=== PATIENT | male | born 1965 | race Caucasian/White ===

== ENCOUNTER 2017-02-12 19:41 | Emergency (ER) | payer OTHER, SELFPAY ==
[2017-02-12 20:14] VITALS: TEMP 99.1; O2SAT 98
--- NOTE | 2017-02-12 20:29 | C.PDOC ---
History Of Present Illness Patient, with a past medical history of hypertension, presents to the ED complaining of a nose bleed that began prior to arrival. He notes it stopped bleeding. Patient denies any discomfort, trauma, fever, chills, cough, nausea or vomiting. Time Seen by Provider: 02/12/17 20:28 Chief Complaint (Nursing): ENT Problem History Per: Patient History/Exam Limitations: None Onset/Duration Of Symptoms: Mins (prior to arrival) Current Symptoms Are (Timing): Gone Severity: None Pain Scale Rating Of: 0 Past Medical History Reviewed: Historical Data, Nursing Documentation, Vital Signs Vital Signs: Last Vital Signs Temp 99.1 F 02/12/17 20:08 Pulse 80 02/12/17 21:04 Resp 14 02/12/17 21:04 BP 168/82 H 02/12/17 21:04 Pulse Ox 98 02/12/17 21:04 - Medical History PMH: HTN Family History: States: Unknown Family Hx - Social History Hx Alcohol Use: Yes Hx Substance Use: No - Immunization History Hx Tetanus Toxoid Vaccination: No Hx Influenza Vaccination: No Hx Pneumococcal Vaccination: No Review Of Systems Constitutional: Negative for: Fever, Chills ENT: Positive for: Other (nose bleed) Respiratory: Negative for: Cough Gastrointestinal: Negative for: Nausea, Vomiting Physical Exam - Physical Exam Appears: Non-toxic, No Acute Distress Skin: Warm, Dry Head: Atraumatic, Normacephalic Ear(s): Bilateral: Normal Nose: Other (dry blood in left nare; no active bleeding) Oral Mucosa: Moist Throat: Normal Neck: Supple Chest: Symmetrical Cardiovascular: Rhythm Regular Respiratory: No Rales, No Rhonchi, No Wheezing Gastrointestinal/Abdominal: Soft, No Tenderness Back: No CVA Tenderness Extremity: Bilateral: Atraumatic Neurological/Psych: Oriented x3 ED Course And Treatment O2 Sat by Pulse Oximetry: 98 (room air) Pulse Ox Interpretation: Normal Disposition Counseled Patient/Family Regarding: Studies Performed, Diagnosis, Need For Followup - Disposition Referrals: [facility] [Outside] Danilo Cade MD [Staff Provider] - Disposition: HOME/ ROUTINE Disposition Time: 20:29 Condition: FAIR Additional Instructions: Please return if symptoms recur Instructions: Nosebleed (ED) Print Language: QATARI - Clinical Impression Clinical Impression: Anterior epistaxis - Scribe Statement The provider has reviewed the documentation as recorded by the Scribe Nuris Kapoor Provider Attestation: All medical record entries made by the Scribe were at my direction and personally dictated by me. I have reviewed the chart and agree that the record accurately reflects my personal performance of the history, physical exam, medical decision making, and the department course for this patient. I have also personally directed, reviewed, and agree with the discharge instructions and disposition.
[2017-02-12 21:05] VITALS: BP 168/82; PULSE 80; RESP 14
== END 2017-02-12 21:05 | disposition home or self-care (01) ==
LOC: C.ER 19:41
DX: R04.0 Epistaxis (principal)

== ENCOUNTER 2017-02-12 23:26 | Emergency (ER) | payer SELFPAY ==
--- NOTE | 2017-02-13 00:03 | C.PDOC ---
History Of Present Illness Patient, with a past medical history of hypertension, presents to the ED complaining of a nose bleed from his left nare. Patient was seen in the ED a few hours ago for a nose bleed that stopped bleeding when he arrived in the ED. He went home and he had an anterior bleed with clots from his left nare. Patient reports he has been coughing up clots and the bleeding has been continuous. Patient denies fever, chills, nausea, or vomiting. Time Seen by Provider: 02/12/17 23:37 Chief Complaint (Nursing): ENT Problem History Per: Patient History/Exam Limitations: None Onset/Duration Of Symptoms: Worse Since (prior to arrival) Current Symptoms Are (Timing): Still Present Symptoms Have Been: Continuous Severity: Mild Pain Scale Rating Of: 3 Past Medical History Reviewed: Historical Data, Nursing Documentation, Vital Signs Vital Signs: Last Vital Signs Temp 98.0 F 02/13/17 03:31 Pulse 92 H 02/13/17 03:31 Resp 20 02/13/17 03:31 BP 190/95 H 02/13/17 03:31 Pulse Ox 97 02/13/17 03:31 - Medical History PMH: HTN Family History: States: Unknown Family Hx - Social History Hx Alcohol Use: Yes Hx Substance Use: No - Immunization History Hx Tetanus Toxoid Vaccination: No Hx Influenza Vaccination: No Hx Pneumococcal Vaccination: No Review Of Systems Constitutional: Negative for: Fever, Chills ENT: Positive for: Other (nose bleed from left nare) Gastrointestinal: Negative for: Nausea, Vomiting Physical Exam - Physical Exam Appears: Non-toxic, No Acute Distress Skin: Warm, Dry Head: Atraumatic, Normacephalic Nose: Epistaxis (from left nare) Oral Mucosa: Moist Throat: Normal Neck: Supple Chest: Symmetrical Cardiovascular: Rhythm Regular Respiratory: No Rales, No Rhonchi, No Wheezing Back: No CVA Tenderness Extremity: Bilateral: Atraumatic Neurological/Psych: Oriented x3, Normal Speech, Normal Cognition Gait: Steady ED Course And Treatment O2 Sat by Pulse Oximetry: 96 (room air) Pulse Ox Interpretation: Normal Progress Note: Plan: Ativan. Packed left nare with 5.5 cm rapid rhino. Disposition Counseled Patient/Family Regarding: Studies Performed, Diagnosis, Need For Followup - Disposition Referrals: Danilo Cade MD [Staff Provider] - Disposition: HOME/ ROUTINE Disposition Time: 00:03 Condition: FAIR Additional Instructions: please follow up with ENT doctor., so you can have the packing removed in the next 24 hours. Instructions: Nosebleed (ED) Print Language: MALDIVIAN - Clinical Impression Clinical Impression: Anterior epistaxis - Scribe Statement The provider has reviewed the documentation as recorded by the Scribe Nuris Kapoor Provider Attestation: All medical record entries made by the Scribe were at my direction and personally dictated by me. I have reviewed the chart and agree that the record accurately reflects my personal performance of the history, physical exam, medical decision making, and the department course for this patient. I have also personally directed, reviewed, and agree with the discharge instructions and disposition.
[2017-02-13 03:32] VITALS: TEMP 98
[2017-02-13 05:25] VITALS: BP 182/91; PULSE 88; RESP 18; O2SAT 99
== END 2017-02-13 05:28 | disposition home or self-care (01) ==
LOC: C.ER 23:26
DX: R04.0 Epistaxis (principal)

== ENCOUNTER 2017-02-13 20:24 | Emergency (ER) | payer SELFPAY ==
[2017-02-13 21:01] VITALS: TEMP 98.4
[2017-02-13] MEDS ORDERED: Enalaprilat 2.5 MG/2 ML IVP STA (21:36)
[2017-02-13] MEDS ORDERED: Enalaprilat 2.5 MG/2 ML ONE (21:50)
[2017-02-13 21:55] LABS: BASO % 0.7 % (0.0-2.0); EOS # 0.1 K/uL (0.0-0.7); EOS % 2.1 % (0.0-4.0); HEMATOCRIT 37.8 % (35.0-51.0); LYMPH # 1.7 K/uL (1.0-4.3); MEAN CELL VOLUME 91.4 fL (80.0-94.0); MEAN CORPUSCULAR HEMOGLOBIN 30.7 pg (27.0-31.0); MEAN CORPUSCULAR HGB CONC 33.6 g/dL (33.0-37.0); MEAN PLATELET VOLUME 9.2 fL (7.2-11.7); MONO # 0.8 K/uL (0.0-0.8); MONO % 13.3 % (0.0-10.0); RED CELL DISTRIBUTION WIDTH 15.8 % (11.5-14.5); WHITE BLOOD COUNT 6.1 K/uL (4.8-10.8)
[2017-02-13 22:08] LABS: INR 1.3
[2017-02-13 23:30] LABS: CHLORIDE 100 mmol/L (98-107)
[2017-02-13 23:31] LABS: SODIUM 132 mmol/L (132-148)
[2017-02-13 23:33] LABS: ALB/GLOB RATIO 0.7 (1.0-2.1); BILIRUBIN,TOTAL 2.4 mg/dL (0.2-1.3); CARBON DIOXIDE 22 mmol/L (22-30); GFR AFRICAN-AMERICAN > 60; TOTAL PROTEIN 8.1 g/dL (6.3-8.3)
[2017-02-13 23:34] LABS: ALKALINE PHOSPHATASE 174 U/L (38-126); ALT/SGPT 45 U/L (21-72); AST/SGOT 128 U/L (17-59); BLOOD UREA NITROGEN 7 mg/dL (9-20); CALCIUM 8.2 mg/dl (8.6-10.4); GLUCOSE,RANDOM 105 mg/dL (75-110)
[2017-02-13] MEDS ORDERED: Multivitamin With Minerals Tab PO STA (23:42)
[2017-02-13] MEDS ORDERED: Potassium Chloride 20 mEq ER Tab PO STA (23:42)
[2017-02-13] MEDS ORDERED: Phytonadione 2.5 MG/0.5 TAB TAB PO STA (23:42)
[2017-02-13] MEDS ORDERED: Multivitamin With Minerals Tab PO ONE (23:51)
[2017-02-13] MEDS ORDERED: Potassium Chloride 20 mEq ER Tab PO ONE (23:51)
[2017-02-14 00:04] VITALS: PULSE 76; RESP 18
--- NOTE | 2017-02-14 00:22 | C.PDOC ---
History Of Present Illness Pt was seen here yesterday for a left nose bleed that was packed and discharged home. Pt returns today c/o more bleeding, however no active bleeding in the ED. However pt found to be hypertensive (not taking any meds) and review of previous charts shows h/o thrombocytopenia, therefore I ordered labs and antihypertensive medication. Time Seen by Provider: 02/13/17 21:20 Chief Complaint (Nursing): ENT Problem History Per: Patient Onset/Duration Of Symptoms: Days Current Symptoms Are (Timing): Gone Location Of Bleeding: Left Nare Symptoms Have Been: Episodic Severity: Moderate Additional History Per: Prior Records Past Medical History Reviewed: Historical Data, Nursing Documentation, Vital Signs Vital Signs: Last Vital Signs Temp 98.4 F 02/13/17 20:47 Pulse 76 02/13/17 22:45 Resp 18 02/13/17 22:45 BP 135/68 02/13/17 22:45 Pulse Ox 99 02/13/17 22:45 - Medical History PMH: HTN Family History: States: Unknown Family Hx - Social History Hx Alcohol Use: Yes Hx Substance Use: No - Immunization History Hx Tetanus Toxoid Vaccination: No Hx Influenza Vaccination: No Hx Pneumococcal Vaccination: No Review Of Systems Except As Marked, All Systems Reviewed And Found Negative. Constitutional: Negative for: Fever, Weakness Cardiovascular: Negative for: Chest Pain Respiratory: Negative for: Shortness of Breath Gastrointestinal: Negative for: Vomiting, Abdominal Pain Musculoskeletal: Negative for: Neck Pain Skin: Negative for: Rash Neurological: Negative for: Weakness, Numbness, Seizures, Altered Mental Status Physical Exam - Physical Exam Appears: Non-toxic, No Acute Distress Skin: Normal Color, Warm, Dry Head: Atraumatic, Normacephalic Eye(s): bilateral: Normal Inspection, PERRL, EOMI Nose: Other (left nare is packed. no active bleeding. ) Oral Mucosa: Moist Throat: Normal Neck: Normal ROM, Supple Cardiovascular: Rhythm Regular Respiratory: Normal Breath Sounds, No Accessory Muscle Use Gastrointestinal/Abdominal: Soft, No Tenderness Extremity: Normal ROM Neurological/Psych: Oriented x3, Normal Motor, Normal Sensation ED Course And Treatment - Laboratory Results Result Diagrams: 02/13/17 21:51 02/13/17 21:51 Lab Interpretation: Abnormal Interpretation Of Abnormal: Thrombocytopenia. Abnormal LFTs. Mild hypokalemia. O2 Sat by Pulse Oximetry: 99 Pulse Ox Interpretation: Normal Progress Note: Based on the patient's laboratory abnormalities, I suspect alcohol abuse although patient denies. BP improved. I removed the patient's packing and no bleeding. Reassessment Condition: Improved Progress - Interventions Interventions:: Observation - Medications Administered Intravenous: Antihypertensive - Data Reviewed Data Reviewed: Lab, Old records - Patient Status Patient status: Mostly improved - Continuity of Care Discussed patient case with:: Patient, ED Nurse - Patient Plan Patient Plan: Discharge, F/U with PCP Disposition Counseled Patient/Family Regarding: Studies Performed, Diagnosis, Need For Followup, Rx Given - Disposition Referrals: [facility] [Outside] Disposition: HOME/ ROUTINE Disposition Time: 00:26 Condition: IMPROVED Additional Instructions: Avoid alcohol. Follow up in the clinic this week for further evaluation and treatment. Return to the ER if you develop bleeding that does not stop after 10 minutes of direct pressure, worsening of symptoms or if you have any other concerns. Prescriptions: Enalapril Maleate [Vasotec] 5 mg PO DAILY #30 tab Fluticasone Propionate [Flonase] 2 spr NS DAILY #1 spr Multivitamin with Minerals [Men's One Daily] 1 each PO DAILY #30 tablet Instructions: Nosebleed (ED) Print Language: CITIZEN [place] - Clinical Impression Clinical Impression: Left-sided epistaxis, Thrombocytopenia, Abnormal LFTs
[2017-02-14 00:38] VITALS: BP 146/78; O2SAT 98
== END 2017-02-14 00:38 | disposition home or self-care (01) ==
LOC: C.ER 20:24
DX: R04.0 Epistaxis (principal); D69.6 Thrombocytopenia, unspecified; R79.89 Other specified abnormal findings of blood chemistry; I10 Essential (primary) hypertension

== ENCOUNTER 2017-03-18 07:27 | Observation (INO) | payer OTHER, SELFPAY ==
[2017-03-18] MEDS ORDERED: Phenylephrine 1% Nasal Spray (15 ml) NAS STA (07:46)
[2017-03-18 08:14] LABS: BASO % 0.6 % (0.0-2.0); EOS # 0.1 K/uL (0.0-0.7); EOS % 2.2 % (0.0-4.0); HEMOGLOBIN 12.3 g/dL (12.0-18.0); LYMPH # 1.6 K/uL (1.0-4.3); LYMPH % 30.4 % (20.0-40.0); MEAN CELL VOLUME 92.2 fL (80.0-94.0); MEAN CORPUSCULAR HEMOGLOBIN 30.7 pg (27.0-31.0); MEAN CORPUSCULAR HGB CONC 33.3 g/dL (33.0-37.0); MEAN PLATELET VOLUME 9.5 fL (7.2-11.7); MONO # 0.6 K/uL (0.0-0.8); MONO % 12.5 % (0.0-10.0); NEUT # 2.8 K/uL (1.8-7.0); NEUT % 54.3 % (50.0-75.0); NRBC % 0.1 % (0.0-2.0); RBC 4.01 Mil/uL (4.40-5.90); WHITE BLOOD COUNT 5.1 K/uL (4.8-10.8)
[2017-03-18] MEDS ORDERED: Phenylephrine 1% Nasal Spray (15 ml) ONE (08:21)
[2017-03-18 08:23] LABS: INR 1.2; PROTHROMBIN TIME 13.7 SECONDS (9.7-12.2)
[2017-03-18 08:28] LABS: ALBUMIN 3.4 g/dL (3.5-5.0)
[2017-03-18 08:31] LABS: ALB/GLOB RATIO 0.8 (1.0-2.1); ALT/SGPT 42 U/L (21-72); AST/SGOT 81 U/L (17-59); BLOOD UREA NITROGEN 6 mg/dL (9-20); CALCIUM 7.9 mg/dl (8.6-10.4); GFR AFRICAN-AMERICAN > 60; GFR NON-AFRICAN AMERICAN > 60
--- NOTE | 2017-03-18 08:50 | C.PDOC ---
History Of Present Illness Patient presents to ED c/o persistent epistaxis from left nare since approx 6am today. He has h/o epistaxis, has been seen in ED multiple times in February for same. Time Seen by Provider: 03/18/17 07:28 Chief Complaint (Nursing): ENT Problem History Per: Patient History/Exam Limitations: None Onset/Duration Of Symptoms: Hrs Current Symptoms Are (Timing): Still Present Symptoms Have Been: Continuous Severity: Moderate Past Medical History Reviewed: Historical Data, Nursing Documentation, Vital Signs Vital Signs: Last Vital Signs Temp 97.6 F 03/20/17 07:00 Pulse 63 03/20/17 13:53 Resp 20 03/20/17 07:00 BP 116/66 03/20/17 13:53 Pulse Ox 96 03/20/17 07:00 - Medical History PMH: HTN Family History: States: No Known Family Hx - Social History Hx Alcohol Use: Yes Hx Substance Use: No - Immunization History Hx Tetanus Toxoid Vaccination: No Hx Influenza Vaccination: No Hx Pneumococcal Vaccination: No Review Of Systems Except As Marked, All Systems Reviewed And Found Negative. Constitutional: Negative for: Fever, Chills ENT: Positive for: Other (left nare epistaxis) Cardiovascular: Negative for: Chest Pain, Palpitations Respiratory: Negative for: Cough, Shortness of Breath Physical Exam - Physical Exam Appears: Well, Non-toxic, In Acute Distress (mild) Skin: Normal Color, Warm, Dry Head: Atraumatic, Normacephalic Nose: Epistaxis, No Septal Hematoma, Other (clot visualzed in posterior left nare, (+) active mild bleeding) Oral Mucosa: Moist Throat: Normal, No Erythema, No Exudate, No Drooling, Other (no blood in posterior oropharnx) Cardiovascular: Rhythm Regular Respiratory: Normal Breath Sounds, No Rales, No Rhonchi, No Wheezing Neurological/Psych: Oriented x3 ED Course And Treatment - Laboratory Results Result Diagrams: 03/20/17 07:24 03/20/17 07:24 O2 Sat by Pulse Oximetry: 99 (RA) Pulse Ox Interpretation: Normal Progress Note: Nasal splint applied by me, however patient unable to tolerate and removed it and continued to have bleeding. Left rhinorocket placed ( impregnated with neosyneprhine), (+) intermittent increased bleeding from B/L nares. Patient spitting up blood and clots, in moderate distress. Right rhinorocket placed. Call placed to Dr. Cade by charge nurse. 11:00- Dr. Cade at bedside to see patient. - Physician Consult Information Physician Contacted: Leon Mcdowell Outcome Of Conversation: Discussed patient with hospitalist, agrees with obs tele to his service with Dr. Cade for ENT. Critical Care Time - Critical Care Note Total Time (in mins): 35 Documented critical care: time excludes all time spent performing seperately billable procedures. Disposition - Disposition Disposition: HOSPITALIZED Disposition Time: 10:29 Condition: STABLE - Clinical Impression Clinical Impression: Thrombocytopenia, Epistaxis, Elevated partial thromboplastin time (PTT) Decision To Admit - Pt Status Changed To: Hospital Disposition Of: Observation - . Bed Request Type: Telemetry Admitting Physician: Leon Mcdowell Patient Diagnosis: Epistaxis, Thrombocytopenia, Elevated partial thromboplastin time (PTT)
[2017-03-18] MEDS ORDERED: Amoxicillin-Clav 875-125 mg Tab PO STA (10:42)
[2017-03-18] MEDS ORDERED: ceFAZolin 1 gm FROZEN Premix 1 GM/50 ML ML IVPB ONE (11:18)
--- NOTE | 2017-03-18 16:05 | CP.PCM.HP ---
<Shahnaz Pate E - Last Filed: 03/18/17 21:16> History of Present Illness - History of Present Illness History of Present Illness: CC : Epistaxis Left Nares HPI: Patient is a 52 year old male with past medical history of HTN who presents to the ED with complaints of epistaxis of the left nostril that started 6am this morning. Patient reports that he has experienced similar symptom in the past and presented to the ED with the same symptom last month. Patient denies any trauma, headache, blurry vision, chest pain, sob, fever, chills, nausea, vomiting and dizziness. Furthermore, patient was noted to have an elevated blood pressure of 190/94. Patient reports that he ran out of his blood pressure medication, which was given to him in the ED during his last visit PMD: None PMHx: HTN PSHx: None FHx: None Medications: Unknown Allergies: Shrimp allergy Social History: Lives with friend, works at a [employer] in [place], denies tobacco, ETOH and illicit drug use Medications given in the ER: Cefazolin 1gm IVPB, Hydralazine 10mg IVPB, Zofran 4mg IVPB and Phenylephrine HCL (Nasal [place]) 1ml Present on Admission - Present on Admission Any Indicators Present on Admission: No Review of Systems - Constitutional Constitutional: absent: Chills, Fever, Headache - EENT Eyes: absent: Blurred Vision, Change in Vision Nose/Mouth/Throat: Epistaxis, Nasal Congestion. absent: Nasal Trauma, Facial Pain - Cardiovascular Cardiovascular: absent: Chest Pain, Diaphoresis, Dyspnea, Palpitations - Respiratory Respiratory: absent: Dyspnea, Dyspnea on Exertion - Gastrointestinal Gastrointestinal: absent: Abdominal Pain, Constipation, Diarrhea, Hematochezia - Genitourinary Genitourinary: absent: Pyuria, Urinary Frequency, Urinary Urgency - Integumentary Integumentary: absent: Bleeding Lesions, Rash - Neurological Neurological: absent: Dizziness, Headaches, Loss of Vision - Endocrine Endocrine: absent: Fatigue, Palpitations - Hematologic/Lymphatic Hematologic: absent: Easy Bleeding, Easy Bruising Past Patient History - Infectious Disease Hx of Infectious Diseases: None - Past Social History Smoking Status: Never Smoked - CARDIAC Hx Hypertension: Yes - INTEGUMENTARY Hx Cellulitis: Yes - PSYCHIATRIC Hx Substance Use: No - SURGICAL HISTORY Hx Surgeries: No - ANESTHESIA Hx Anesthesia: No Hx Anesthesia Reactions: No Meds Allergies/Adverse Reactions: Allergies Allergy/AdvReac Type Severity Reaction Status Date / Time shrimp Allergy Severe RASH Verified 03/18/17 07:30 Results - Vital Signs Recent Vital Signs: Last Vital Signs Temp 98.3 F 03/18/17 14:09 Pulse 99 H 03/18/17 14:09 Resp 20 03/18/17 14:09 BP 177/86 H 03/18/17 14:17 Pulse Ox 95 03/18/17 14:09 - Labs Result Diagrams: 03/18/17 08:02 03/18/17 08:02 Assessment & Plan (1) Left-sided nosebleed Assessment and Plan: ENT consult ( Dr. Dominguez)---> Help appreciated Monitor H/H and platelet F/U am labs Status: Acute (2) Thrombocytopenia Assessment and Plan: On admission: * Platelet: 73 * F/U AM labs * Monitor Status: Acute (3) Uncontrolled hypertension Assessment and Plan: 190/94 on admission Norvasc 10mg PO daily Coreg 12.5 mg PO BID Hydralazine 10mg IVPB if SBP >160mmhg Monitor Status: Acute (4) Prophylactic measure Assessment and Plan: SCD Pepcid 20mg PO BID Heparin or Lovenox contraindicated at this time due to nosebled. Status: Acute <Leon Mcdowell H - Last Filed: 03/19/17 08:12> Results - Vital Signs Recent Vital Signs: Last Vital Signs Temp 98.3 F 03/19/17 00:00 Pulse 63 03/19/17 00:00 Resp 20 03/19/17 00:00 BP 157/80 H 03/19/17 00:00 Pulse Ox 96 03/19/17 00:00 - Labs Result Diagrams: 03/19/17 07:35 03/19/17 07:35 Labs: Laboratory Results - last 24 hr 03/19/17 03/19/17 07:35 07:35 WBC 6.6 RBC 4.03 L Hgb 12.6 Hct 37.4 MCV 92.6 MCH 31.2 H MCHC 33.7 RDW 15.2 H Plt Count 83 L MPV 9.5 Sodium 136 Potassium 3.5 L Chloride 104 Albumin 3.3 L Attending/Attestation - Attestation I have personally seen and examined this patient.: Yes I have fully participated in the care of the patient.: Yes I have reviewed all pertinent clinical information: Yes Notes (Text): 03/19/17 08:08 Medical attending: Patient was seen and examined by me, agree with the above note by outside medical sales representative. The patient came to the emergency room with left nostril epistasis. It appears that the ER and then evaluated by your nose and throat, the patient's left nostril had a appear to be a flexible catheter in place to stop the bleeding He was not any pain when we saw him, however his blood pressure was very elevated with the workup control his blood pressure with medication. We also need to monitor his platelet count as well. As it is in the 70s at this time. Thank you very much, Leon Mcdowell
--- NOTE | 2017-03-18 19:15 | PCM.OP ---
Operative Report - Operative Report Date of Surgery/Procedure: 03/18/17 Time of Surgery/Procedure: 11:30 Surgeon: Dr. Danilo Cade Anesthesia/Sedation: non Pre-Operative Diagnosis: Epistaxis Post-Operative Diagnosis: Epistaxis Indication for Surgery: Epistaxis Operative Findings: posterior epistaxis Procedure/Operation Description: Patient was placed in a seated position. Jay was inserted in the left nasal cavity past the nasopharynx. The balloon was inflated in the nasopharynx with 15 cc of water. Xeroform gauze was used to pack the nose from posterior to anterior direction against the jay balloon was on the left side. The right side was also packed in a similar manner. Clamp was placed over the jay on the left in order to secure it in place. Care was taken to make sure the clamp was not touching the nasal ala. Breathing was controlled. Estimated Blood Loss: 15 cc Complications: Patient tolerated the procedure well. Discharge & Condition: Breathing was controlled
[2017-03-19] MEDS ORDERED: Potassium Chloride 20 mEq ER Tab PO ONE ×3 (00:15→23:05)
[2017-03-19 07:57] LABS: HEMOGLOBIN 12.6 g/dL (12.0-18.0); MEAN CELL VOLUME 92.6 fL (80.0-94.0); MEAN CORPUSCULAR HEMOGLOBIN 31.2 pg (27.0-31.0); MEAN CORPUSCULAR HGB CONC 33.7 g/dL (33.0-37.0); MEAN PLATELET VOLUME 9.5 fL (7.2-11.7); RBC 4.03 Mil/uL (4.40-5.90); RED CELL DISTRIBUTION WIDTH 15.2 % (11.5-14.5); WHITE BLOOD COUNT 6.6 K/uL (4.8-10.8)
[2017-03-19 08:05] LABS: ALBUMIN 3.3 g/dL (3.5-5.0)
[2017-03-19 08:08] LABS: ALB/GLOB RATIO 0.8 (1.0-2.1); ALT/SGPT 37 U/L (21-72); AST/SGOT 65 U/L (17-59); BLOOD UREA NITROGEN 10 mg/dL (9-20); GFR AFRICAN-AMERICAN > 60; GFR NON-AFRICAN AMERICAN > 60
[2017-03-19 08:09] LABS: CALCIUM 8.3 mg/dl (8.6-10.4); MAGNESIUM 1.9 mg/dL (1.6-2.3)
--- NOTE | 2017-03-19 09:50 | CP.PCM.PN ---
<Nithya Matta - Last Filed: 03/19/17 18:21> Subjective - Date & Time of Evaluation Date of Evaluation: 03/19/17 Time of Evaluation: 09:50 - Subjective Subjective: Medicine Progress Note- Dr. Mcdowell's Service Patient was seen and examined at bedside in no acute distress. Patient reports no complaints and is feeling well. Patient denies chest pain, abdominal pain, leg pain, nausea, vomiting, diarrhea, constipation, dizziness and headaches. Objective - Vital Signs/Intake and Output Vital Signs (last 24 hours): Temp Pulse Resp BP Pulse Ox 97.5 F L 75 20 168/83 H 96 03/19/17 00:00 03/19/17 00:00 03/19/17 00:00 03/19/17 00:00 03/19/17 00:00 Intake and Output: 03/19/17 03/19/17 06:59 18:59 Intake Total 200 Output Total 400 Balance -200 - Medications Medications: Current Medications Amlodipine Besylate (Norvasc) 10 mg PO DAILY [facility] Last Admin: 03/18/17 18:27 Dose: 10 mg Carvedilol (Coreg) 12.5 mg PO BID [facility] Last Admin: 03/18/17 18:27 Dose: 12.5 mg Famotidine (Pepcid) 20 mg PO BID [facility] Last Admin: 03/18/17 18:27 Dose: 20 mg Pneumococcal Polyvalent Vaccine (Pneumovax 23 Vaccine) 0.5 ml IM .ONCE ONE Stop: 03/20/17 10:01 - Labs Labs: 03/19/17 07:35 03/19/17 07:35 PT 13.7 SECONDS (9.7-12.2) H 03/18/17 08:02 INR 1.2 03/18/17 08:02 APTT 36 SECONDS (21-34) H 03/18/17 08:02 - Constitutional Appears: No Acute Distress - Head Exam Head Exam: NORMAL INSPECTION, NORMOCEPHALIC - Eye Exam Eye Exam: EOMI, Normal appearance - ENT Exam ENT Exam: Mucous Membranes Moist Additional comments: Jay placed in left nostril - Neck Exam Neck Exam: Full ROM, Normal Inspection - Respiratory Exam Respiratory Exam: Clear to Ausculation Bilateral, NORMAL BREATHING PATTERN. absent: Rhonchi, Wheezes - Cardiovascular Exam Cardiovascular Exam: REGULAR RHYTHM, +S1, +S2 - GI/Abdominal Exam GI & Abdominal Exam: Soft, Normal Bowel Sounds. absent: Tenderness - Extremities Exam Extremities Exam: Normal Inspection. absent: Calf Tenderness, Pedal Edema, Tenderness - Neurological Exam Neurological Exam: Alert, Awake, Oriented x3 - Psychiatric Exam Psychiatric exam: Normal Affect, Normal Mood - Skin Skin Exam: Dry, Intact, Normal Color, Warm Assessment and Plan (1) Left-sided nosebleed Assessment & Plan: ENT consult ( Dr. Dominguez)---> Help appreciated * Per ENT- jay with balloon inserted in left nostril F/U am labs Monitor H/H and platelet 03/18/17: H/H 12.3/37.0 Plt 73 03/19/17: H/H 12.6/37.4 Plt 83 Status: Acute (2) Uncontrolled hypertension Assessment & Plan: 190/94 on admission Norvasc 10mg PO daily Coreg 12.5 mg PO BID Hydralazine 25mg PO TID started on 03/19/17 Hydralazine 10mg IVPB if SBP >160mmhg Monitor Status: Acute (3) Thrombocytopenia Assessment & Plan: On admission: * Platelet: 73 * F/U AM labs * Monitor 03/19/17: Plt 83 Status: Acute (4) Prophylactic measure Assessment & Plan: SCD Pepcid 20mg PO BID Heparin or Lovenox contraindicated at this time due to nosebled. Status: Acute <Leon Mcdowell H - Last Filed: 03/19/17 19:14> Objective - Vital Signs/Intake and Output Vital Signs (last 24 hours): Temp Pulse Resp BP Pulse Ox 98 F 58 L 18 151/79 H 96 03/19/17 16:00 03/19/17 16:00 03/19/17 16:00 03/19/17 17:57 03/19/17 16:00 - Medications Medications: Current Medications Amlodipine Besylate (Norvasc) 10 mg PO DAILY [facility] Last Admin: 03/19/17 11:28 Dose: 10 mg Carvedilol (Coreg) 12.5 mg PO BID [facility] Last Admin: 03/19/17 17:57 Dose: 12.5 mg Famotidine (Pepcid) 20 mg PO BID [facility] Last Admin: 03/19/17 17:57 Dose: 20 mg Hydralazine HCl (Apresoline) 25 mg PO TID [facility] Last Admin: 03/19/17 17:57 Dose: 25 mg Pneumococcal Polyvalent Vaccine (Pneumovax 23 Vaccine) 0.5 ml IM .ONCE ONE Stop: 03/20/17 10:01 - Labs Labs: 03/19/17 07:35 03/19/17 07:35 PT 13.7 SECONDS (9.7-12.2) H 03/18/17 08:02 INR 1.2 03/18/17 08:02 APTT 36 SECONDS (21-34) H 03/18/17 08:02 Attending/Attestation - Attestation I have personally seen and examined this patient.: Yes I have fully participated in the care of the patient.: Yes I have reviewed all pertinent clinical information, including history, physical exam and plan: Yes Notes (Text): Medical Attending: Patient was seen and examined by me. Agree with the above by the resident. His blood pressure is somewhat decreased from before. The patient denied any acute complaints or conerns at this time. Hopefully it can be removed tommorow. thank you
[2017-03-20 00:27] VITALS: RESP 20
--- NOTE | 2017-03-20 07:27 | CP.PCM.PN ---
Subjective - Date & Time of Evaluation Date of Evaluation: 03/20/17 Time of Evaluation: 07:24 - Subjective Subjective: Medicine Progress Note- Dr. Mcdowell's Service Patient was seen and examined at bedside. Patient was in no acute distress and resting comfortably in bed. Patient has no complaints and states he feels well. Patient is concerned about staying out of work for so long. Patient denies chest pain, abdominal pain, headaches, nausea, vomiting, diarrhea, and constipation. Objective - Vital Signs/Intake and Output Vital Signs (last 24 hours): Temp Pulse Resp BP Pulse Ox 97.4 F L 59 L 20 128/65 96 03/19/17 23:35 03/19/17 23:35 03/19/17 23:35 03/19/17 23:35 03/19/17 23:35 Intake and Output: 03/20/17 03/20/17 06:59 18:59 Intake Total 440 Output Total 1500 Balance -1060 - Medications Medications: Current Medications Amlodipine Besylate (Norvasc) 10 mg PO DAILY [facility] Last Admin: 03/19/17 11:28 Dose: 10 mg Carvedilol (Coreg) 12.5 mg PO BID [facility] Last Admin: 03/19/17 17:57 Dose: 12.5 mg Famotidine (Pepcid) 20 mg PO BID [facility] Last Admin: 03/19/17 17:57 Dose: 20 mg Hydralazine HCl (Apresoline) 25 mg PO TID [facility] Last Admin: 03/19/17 17:57 Dose: 25 mg Pneumococcal Polyvalent Vaccine (Pneumovax 23 Vaccine) 0.5 ml IM .ONCE ONE Stop: 03/20/17 10:01 - Labs Labs: 03/19/17 07:35 03/19/17 07:35 PT 13.7 SECONDS (9.7-12.2) H 03/18/17 08:02 INR 1.2 03/18/17 08:02 APTT 36 SECONDS (21-34) H 03/18/17 08:02 - Constitutional Appears: No Acute Distress - Head Exam Head Exam: NORMAL INSPECTION, NORMOCEPHALIC - Eye Exam Eye Exam: EOMI, Normal appearance - ENT Exam ENT Exam: Mucous Membranes Moist Additional comments: Jay in left nostril. - Respiratory Exam Respiratory Exam: Clear to Ausculation Bilateral, NORMAL BREATHING PATTERN. absent: Rhonchi, Wheezes - Cardiovascular Exam Cardiovascular Exam: REGULAR RHYTHM, +S1, +S2. absent: Murmur - GI/Abdominal Exam GI & Abdominal Exam: Soft, Normal Bowel Sounds. absent: Tenderness - Extremities Exam Extremities Exam: Full ROM. absent: Calf Tenderness, Pedal Edema, Tenderness - Neurological Exam Neurological Exam: Alert, Awake, Oriented x3 - Psychiatric Exam Psychiatric exam: Normal Affect, Normal Mood - Skin Skin Exam: Dry, Intact, Normal Color, Warm Assessment and Plan (1) Left-sided nosebleed Assessment & Plan: ENT consult ( Dr. Dominguez)---> Help appreciated * Per ENT- jay with balloon inserted in left nostril F/U am labs Monitor H/H and platelet 03/18/17: H/H 12.3/37.0 Plt 73 03/19/17: H/H 12.6/37.4 Plt 83 03/20/17: H/H: Plt: Status: Acute (2) Uncontrolled hypertension Assessment & Plan: 190/94 on admission Norvasc 10mg PO daily Coreg 12.5 mg PO BID Hydralazine 25mg PO TID started on 03/19/17 Hydralazine 10mg IVPB if SBP >160mmhg Monitor Status: Acute (3) Thrombocytopenia Assessment & Plan: On admission: * Platelet: 73 * F/U AM labs * Monitor 03/19/17: Plt 83 03/20/17: Plt Status: Acute (4) Prophylactic measure Assessment & Plan: SCD Pepcid 20mg PO BID Heparin or Lovenox contraindicated at this time due to nosebled. Status: Acute
[2017-03-20 07:37] LABS: BASO % 0.5 % (0.0-2.0); EOS # 0.3 K/uL (0.0-0.7); EOS % 4.4 % (0.0-4.0); HEMOGLOBIN 13.1 g/dL (12.0-18.0); LYMPH # 2.1 K/uL (1.0-4.3); LYMPH % 29.3 % (20.0-40.0); MEAN CELL VOLUME 93.8 fL (80.0-94.0); MEAN CORPUSCULAR HEMOGLOBIN 31.3 pg (27.0-31.0); MEAN CORPUSCULAR HGB CONC 33.4 g/dL (33.0-37.0); MEAN PLATELET VOLUME 9.8 fL (7.2-11.7); MONO # 0.9 K/uL (0.0-0.8); MONO % 13.1 % (0.0-10.0); NEUT # 3.8 K/uL (1.8-7.0); NEUT % 52.7 % (50.0-75.0); RBC 4.19 Mil/uL (4.40-5.90); RED CELL DISTRIBUTION WIDTH 15.4 % (11.5-14.5); WHITE BLOOD COUNT 7.1 K/uL (4.8-10.8)
[2017-03-20 08:01] LABS: ALBUMIN 3.2 g/dL (3.5-5.0)
[2017-03-20 08:03] LABS: GFR AFRICAN-AMERICAN > 60; GFR NON-AFRICAN AMERICAN > 60
[2017-03-20 08:04] LABS: ALB/GLOB RATIO 0.8 (1.0-2.1); ALT/SGPT 35 U/L (21-72); AST/SGOT 56 U/L (17-59); BLOOD UREA NITROGEN 12 mg/dL (9-20)
[2017-03-20 08:05] LABS: CALCIUM 8.4 mg/dl (8.6-10.4); MAGNESIUM 1.8 mg/dL (1.6-2.3)
[2017-03-20 08:49] VITALS: TEMP 97.6
[2017-03-20] MEDS ORDERED: Pneumococcal 23-Valent Vaccine IM ONE ×2 (10:00→14:30)
--- NOTE | 2017-03-20 12:04 | CP.PCM.PN ---
Subjective - Date & Time of Evaluation Date of Evaluation: 03/20/17 Time of Evaluation: 12:02 - Subjective Subjective: no epistaxis. remove pack and no bleeding noted nose: no epistaxis oc/op: no bloody pnd a/p: epistaxis controled ok to d/c home f/u in office 1 week. Objective - Vital Signs/Intake and Output Vital Signs (last 24 hours): Temp Pulse Resp BP Pulse Ox 97.6 F 61 20 144/66 96 03/20/17 07:00 03/20/17 07:00 03/20/17 07:00 03/20/17 09:15 03/20/17 07:00 Intake and Output: 03/20/17 03/20/17 06:59 18:59 Intake Total 440 Output Total 1500 Balance -1060 - Medications Medications: Current Medications Amlodipine Besylate (Norvasc) 10 mg PO DAILY [facility] Last Admin: 03/20/17 09:15 Dose: 10 mg Carvedilol (Coreg) 12.5 mg PO BID [facility] Last Admin: 03/20/17 09:15 Dose: 12.5 mg Famotidine (Pepcid) 20 mg PO BID [facility] Last Admin: 03/20/17 09:15 Dose: 20 mg Hydralazine HCl (Apresoline) 25 mg PO TID [facility] Last Admin: 03/20/17 09:15 Dose: 25 mg - Labs Labs: 03/20/17 07:24 03/20/17 07:24 PT 13.7 SECONDS (9.7-12.2) H 03/18/17 08:02 INR 1.2 03/18/17 08:02 APTT 36 SECONDS (21-34) H 03/18/17 08:02
[2017-03-20 13:53] VITALS: BP 116/66; PULSE 63
--- NOTE | 2017-03-20 16:01 | CP.PCM.DIS ---
Provider - Provider Date of Admission: 03/18/17 10:29 Attending physician: Leon Mcdowell DO Primary care physician: [facility] Consults: ENT- Dr. Cade Time Spent in preparation of Discharge (in minutes): 45 Diagnosis - Discharge Diagnosis (1) Left-sided nosebleed Status: Resolved Comment: See hospital summary for more details. (2) Uncontrolled hypertension Status: Chronic Comment: See hospital summary for more details. (3) Thrombocytopenia Status: Chronic Comment: See hospital summary for more details. Hospital Course - Lab Results Lab Results: Most Recent Lab Values WBC 7.1 K/uL (4.8-10.8) 03/20/17 07:24 RBC 4.19 Mil/uL (4.40-5.90) L 03/20/17 07:24 Hgb 13.1 g/dL (12.0-18.0) 03/20/17 07:24 Hct 39.3 % (35.0-51.0) 03/20/17 07:24 MCV 93.8 fL (80.0-94.0) 03/20/17 07:24 MCH 31.3 pg (27.0-31.0) H 03/20/17 07:24 MCHC 33.4 g/dL (33.0-37.0) 03/20/17 07:24 RDW 15.4 % (11.5-14.5) H 03/20/17 07:24 Plt Count 92 K/uL (130-400) L 03/20/17 07:24 MPV 9.8 fL (7.2-11.7) 03/20/17 07:24 Neut % (Auto) 52.7 % (50.0-75.0) 03/20/17 07:24 Lymph % (Auto) 29.3 % (20.0-40.0) 03/20/17 07:24 [place] % (Auto) 13.1 % (0.0-10.0) H 03/20/17 07:24 Eos % (Auto) 4.4 % (0.0-4.0) H 03/20/17 07:24 Baso % (Auto) 0.5 % (0.0-2.0) 03/20/17 07:24 Neut # 3.8 K/uL (1.8-7.0) 03/20/17 07:24 Lymph # 2.1 K/uL (1.0-4.3) 03/20/17 07:24 [place] # 0.9 K/uL (0.0-0.8) H 03/20/17 07:24 Eos # 0.3 K/uL (0.0-0.7) 03/20/17 07:24 Baso # 0.0 K/uL (0.0-0.2) 03/20/17 07:24 Differential Comment 03/19/17 07:35 PT 13.7 SECONDS (9.7-12.2) H 03/18/17 08:02 INR 1.2 03/18/17 08:02 APTT 36 SECONDS (21-34) H 03/18/17 08:02 Sodium 137 mmol/L (132-148) 03/20/17 07:24 Potassium 3.8 mmol/L (3.6-5.2) 03/20/17 07:24 Chloride 106 mmol/L (98-107) 03/20/17 07:24 Carbon Dioxide 23 mmol/L (22-30) 03/20/17 07:24 Anion Gap 12 (10-20) 03/20/17 07:24 BUN 12 mg/dL (9-20) 03/20/17 07:24 Creatinine 0.5 MG/DL (0.8-1.5) L 03/20/17 07:24 Est GFR ( Amer) > 60 03/20/17 07:24 Est GFR (Non-Af Amer) > 60 03/20/17 07:24 Random Glucose 98 mg/dL (75-110) 03/20/17 07:24 Calcium 8.4 mg/dl (8.6-10.4) L 03/20/17 07:24 Phosphorus 4.7 mg/dL (2.5-4.5) H 03/20/17 07:24 Magnesium 1.8 mg/dL (1.6-2.3) 03/20/17 07:24 Total Bilirubin 1.6 mg/dL (0.2-1.3) H 03/20/17 07:24 AST 56 U/L (17-59) 03/20/17 07:24 ALT 35 U/L (21-72) 03/20/17 07:24 Alkaline Phosphatase 130 U/L (38-126) H 03/20/17 07:24 Total Protein 7.3 g/dL (6.3-8.3) 03/20/17 07:24 Albumin 3.2 g/dL (3.5-5.0) L 03/20/17 07:24 Globulin 4.1 gm/dL (2.2-3.9) H 03/20/17 07:24 Albumin/Globulin Ratio 0.8 (1.0-2.1) L 03/20/17 07:24 Blood Type O POSITIVE 03/18/17 08:51 Antibody Screen Negative 03/18/17 08:51 - Hospital Course Hospital Course: CC: Epistaxis left nares HPI: Patient is a 52 year old male with a past medical history of HTN who presents to the ED with complaints of epistaxis of the left nostril that started 6am this morning. Patient reports that he has experienced similar symptom in the past and presented to the ED with the same symptom last month. Patient denies any trauma, headache, blurry vision, chest pain, SOB, fever, chills, nausea, vomiting, and dizziness. Furthermore, patient was noted to have an elevated blood pressure of 190/94. Patient reports that he ran out of his blood pressure medication, which was given to him in the ED during the last visit. Hospital Course: Patient was admitted for uncontrolled hypertension and epitaxis. In the ED a nasal splint was applied, however patient was unable to tolerate the splint and removed it; therefore, his nose continued to bleed. A left rhinorocket was placed with neosyneprhine. Patient was spitting up blood and clots. Right rhinorocket was placed. Medications given in the ED: Cefazolin , Hydralazine, Zofran and Phenylephrine HCL nasal spray. On admission patient was also found to have a blood pressure of 190/94 for which Norvasc and Coreg was prescribed. The patient's blood pressure was still elevated and Hydralazine was prescribed. Platelets were monitored throughout hospital stay. ENT was consulted and patient was seen by Dr. Cade who inserted a jay and inflated the balloon in the left nasal cavity past the nasopharynx. Xerofrom gauze was used to pack the nose. The right side was also packed in a similar manner. Clamp was placed over the jay on the left in order to secure it in place. Patients breathing was controlled. Patient was seen by Dr. Cade to remove jay and packing- no bleeding was noted. Dr. Kate cleared patient for discharge. Patient's hypertension is controlled and is stable for discharge to home as per Dr. Mcdowell. This is a brief summary of events. For a complete course, refer to the medical record. Patient with noted clinical improvement and patient deemed medically stable for discharge as per Dr. Mcdowell. Patient should continue all medications listed below. Norvasc 10mg by mouth daily Hydralazine 25mg by mouth three times a day Patient should follow up with their primary care doctor within one week of discharge. Patient must follow up with the ENT, Dr Cade, within one week of discharge. These instructions have been discussed and understood with the patient. If symptoms reoccur, patient should return to the ED. Discharge Exam - Head Exam Head Exam: NORMAL INSPECTION, NORMOCEPHALIC - Eye Exam Eye Exam: EOMI, Normal appearance - ENT Exam ENT Exam: Mucous Membranes Moist Additional comments: Jay removed from left nostril - Neck Exam Neck exam: Full Rom, Normal Inspection - Respiratory Exam Respiratory Exam: Clear to PA & Lateral, NORMAL BREATHING PATTERN, UNREMARKABLE. absent: Wheezes - Cardiovascular Exam Cardiovascular Exam: REGULAR RHYTHM, +S1, +S2. absent: Systolic Murmur - GI/Abdominal Exam GI & Abdominal Exam: Normal Bowel Sounds, Unremarkable. absent: Soft, Tenderness - Extremities Exam Extremities exam: normal inspection - Neurological Exam Neurological exam: Alert, Oriented x3 - Psychiatric Exam Psychiatric exam: Normal Affect, Normal Mood - Skin Skin Exam: Dry, Intact, Normal Color, Warm Discharge Plan - Discharge Medications Prescriptions: amLODIPine [Norvasc] 10 mg PO DAILY #30 tab hydrALAZINE [Apresoline] 25 mg PO TID #90 tab - Follow Up Plan Condition: GOOD Disposition: HOME/ ROUTINE Instructions: Nosebleed (GEN), Chronic Hypertension (DC), Thrombocytopenia (DC) Additional Instructions: Patient is stable for discharge to home as per Dr. Mcdowell. Patient must continue medications listed below. Norvasc 10mg by mouth daily Hydralazine 25mg by mouth three times a day. Patient should follow up with their primary care doctor within one week of discharge. Patient must follow up with the ENT, Dr. Cade, within one week of discharge. These instructions have been discussed with and understood by the patient. If symptoms reoccur, patient should return to ED. Referrals: Danilo Cade MD [Staff Provider] -
[2017-03-25 17:48] VITALS: O2SAT 99
== END 2017-03-20 14:36 | disposition home or self-care (01) ==
LOC: C.ER 07:27 → C.9E 10:29 → C.5T 13:27
PROVIDERS: ADMIT Hospitalist; ATTEND Hospitalist
DX: R04.0 Epistaxis (principal); I10 Essential (primary) hypertension; D69.6 Thrombocytopenia, unspecified; Z23 Encounter for immunization; Z91.013 Allergy to seafood

== ENCOUNTER 2017-09-11 20:22 | Emergency (ER) | payer SELFPAY ==
[2017-09-11 20:30] VITALS: RESP 20
[2017-09-11] MEDS ORDERED: Silver Nitrate Topical - Stick ONE (20:39)
[2017-09-11] MEDS ORDERED: Phenylephrine 1% Nasal Spray (15 ml) NAS STA (20:40)
[2017-09-11] MEDS ORDERED: Oxymetazoline 0.05% Nasal Spray (30 ml) NS ONE (20:43)
[2017-09-11 21:11] LABS: BASO % 0.5 % (0.0-2.0); EOS % 0.5 % (0.0-4.0); HEMOGLOBIN 11.5 g/dL (12.0-18.0); LYMPH # 1.5 K/uL (1.0-4.3); LYMPH % 14.5 % (20.0-40.0); MEAN CELL VOLUME 93.5 fL (80.0-94.0); MEAN CORPUSCULAR HEMOGLOBIN 31.9 pg (27.0-31.0); MEAN CORPUSCULAR HGB CONC 34.2 g/dL (33.0-37.0); MEAN PLATELET VOLUME 8.7 fL (7.2-11.7); MONO # 1.2 K/uL (0.0-0.8); MONO % 12.5 % (0.0-10.0); NEUT # 7.2 K/uL (1.8-7.0); RBC 3.61 Mil/uL (4.40-5.90); RED CELL DISTRIBUTION WIDTH 14.2 % (11.5-14.5)
[2017-09-11 21:13] LABS: INR 1.1
[2017-09-11 21:17] LABS: ALB/GLOB RATIO 0.8 (1.0-2.1); ALBUMIN 3.6 g/dL (3.5-5.0); ALT/SGPT 41 U/L (21-72); AST/SGOT 79 U/L (17-59); BLOOD UREA NITROGEN 10 mg/dL (9-20); CALCIUM 7.4 mg/dl (8.6-10.4); GFR AFRICAN-AMERICAN > 60; GFR NON-AFRICAN AMERICAN > 60
--- NOTE | 2017-09-11 21:49 | C.PDOC ---
History Of Present Illness 52 year old male presents to the ER complaining of left-sided epistaxis. Describes having intermittent bleeding since yesterday. Patient has been seen here several times for the same. Denies any light-headedness, syncope, or other complaints at this time. Time Seen by Provider: 09/11/17 20:34 Chief Complaint (Nursing): ENT Problem History Per: Patient History/Exam Limitations: no limitations Onset/Duration Of Symptoms: Intermittent Episodes (since yesterday) Current Symptoms Are (Timing): Still Present Location Of Bleeding: Left Nare Past Medical History Reviewed: Historical Data, Nursing Documentation, Vital Signs Vital Signs: Last Vital Signs Temp 98.1 F 09/11/17 22:01 Pulse 82 09/11/17 22:01 Resp 20 09/11/17 22:01 BP 191/88 H 09/11/17 22:01 Pulse Ox 96 09/11/17 22:01 - Medical History PMH: HTN Denies: Diabetes Surgical History: No Surg Hx Family History: States: Unknown Family Hx - Social History Hx Alcohol Use: Yes Hx Substance Use: No - Immunization History Hx Tetanus Toxoid Vaccination: No Hx Influenza Vaccination: No Hx Pneumococcal Vaccination: No Review Of Systems Except As Marked, All Systems Reviewed And Found Negative. Constitutional: Negative for: Fever ENT: Positive for: Other (Nose bleed, left nare) Cardiovascular: Negative for: Light Headedness Physical Exam - Physical Exam Appears: Non-toxic, No Acute Distress Skin: Normal Color, Warm, Dry Head: Atraumatic, Normacephalic Eye(s): bilateral: Normal Inspection, PERRL, EOMI Ear(s): Bilateral: Normal Nose: Epistaxis (active bleeding from left nare), No Septal Hematoma Oral Mucosa: Moist Throat: Normal Neck: Normal, Normal ROM, Supple Cardiovascular: Rhythm Regular, No Murmur Respiratory: Normal Breath Sounds, No Accessory Muscle Use Extremity: Normal ROM Neurological/Psych: Oriented x3, Normal Speech ED Course And Treatment - Laboratory Results Result Diagrams: 09/11/17 20:56 09/11/17 20:56 O2 Sat by Pulse Oximetry: 98 (RA) Pulse Ox Interpretation: Normal Medical Decision Making Medical Decision Making: Time: 20:45 Initial Impression: 52 y/o male with nose bleed Initial Plan: * CMP * CBC w/ differential * PTT * Prothrombin time * Adams-synephrine 1% NS Attempted chemical cautery without success. Left nare packed with rhino rocket w/ 5 ml air inflated into balloon, anterior posterior balloon. Bleeding is controlled. Time: 21:47 Patient is medically stable. Will discharge with rx for cephalexin. Patient instructed on the need for follow up with PMD for packing removal and reevaluation. Agrees with discharge plan. Instructed to return if symptoms persist or worsen. Disposition Counseled Patient/Family Regarding: Diagnosis, Need For Followup, Rx Given - Disposition Referrals: Danilo Cade MD [Staff Provider] - Disposition: HOME/ ROUTINE Disposition Time: 21:47 Condition: STABLE Additional Instructions: please follow up with your doctor. return to er with worsening symptoms or concerns. Prescriptions: Cephalexin [cephalexin] 500 mg PO QID #28 cap Instructions: Nosebleed (ED) Forms: [facility] (Portuguese) - Clinical Impression Clinical Impression: Epistaxis - Scribe Statement The provider has reviewed the documentation as recorded by the Scribe (Tessa Lima) All medical record entries made by the Scribe were at my direction and personally dictated by me. I have reviewed the chart and agree that the record accurately reflects my personal performance of the history, physical exam, medical decision making, and the department course for this patient. I have also personally directed, reviewed, and agree with the discharge instructions and disposition.
[2017-09-11 22:02] VITALS: BP 191/88; PULSE 82; TEMP 98.1
[2017-09-11 23:16] VITALS: O2SAT 98
== END 2017-09-11 22:02 | disposition home or self-care (01) ==
LOC: C.ER 20:22
DX: R04.0 Epistaxis (principal)

== ENCOUNTER 2017-09-12 13:39 | Emergency (ER) | payer OTHER ==
[2017-09-12 13:47] VITALS: BMI 43.9
[2017-09-12 13:52] VITALS: RESP 18; TEMP 98.9
--- NOTE | 2017-09-12 15:09 | C.PDOC ---
History Of Present Illness 52 year old male presents to ED for evaluation of nasal packing removal. Pt was seen yesterday for left nare epistaxis and had nasal packing placed in the left nare and was instructed to follow up with PMD for packing removal. However, pt states he was unable to make an appointment with PMD today. Denies recurrent nose bleed, headache, dizziness, lightheadedness, or fever. Time Seen by Provider: 09/12/17 14:02 Chief Complaint (Nursing): ENT Problem History Per: Patient History/Exam Limitations: None Onset/Duration Of Symptoms: Days Current Symptoms Are (Timing): Still Present Severity: None Pain Scale Rating Of: 0 Past Medical History Reviewed: Historical Data, Nursing Documentation, Vital Signs Vital Signs: Last Vital Signs Temp 98.9 F 09/12/17 13:47 Pulse 97 H 09/12/17 15:10 Resp 18 09/12/17 15:10 BP 197/93 H 09/12/17 15:19 Pulse Ox 96 09/12/17 16:11 - Medical History PMH: HTN Denies: Diabetes Family History: States: Unknown Family Hx - Social History Hx Alcohol Use: No Hx Substance Use: No - Immunization History Hx Tetanus Toxoid Vaccination: No Hx Influenza Vaccination: No Hx Pneumococcal Vaccination: No Review Of Systems Except As Marked, All Systems Reviewed And Found Negative. Constitutional: Negative for: Fever, Chills ENT: Negative for: Nose Pain, Nose Discharge (no nose bleed) Cardiovascular: Negative for: Chest Pain, Palpitations, Light Headedness Respiratory: Negative for: Shortness of Breath Neurological: Negative for: Headache, Dizziness Physical Exam - Physical Exam Appears: Non-toxic, No Acute Distress Skin: Normal Color, Warm, Dry Head: Atraumatic, Normacephalic, No Swelling (no facial swelling) Eye(s): bilateral: Normal Inspection Nose: No Discharge, No Epistaxis, No Deformity, No Tenderness, No Septal Hematoma, Other (nasal packing in place in the left nare) Oral Mucosa: Moist Chest: Symmetrical Cardiovascular: Rhythm Regular Respiratory: Normal Breath Sounds, No Rales, No Rhonchi, No Wheezing Extremity: Normal ROM Neurological/Psych: Oriented x3, Normal Speech, Normal Cognition ED Course And Treatment O2 Sat by Pulse Oximetry: 96 (RA) Pulse Ox Interpretation: Normal Progress Note: Nasal packing was removed, without difficulty. Pt tolerated well , no complications. On exam, there is no septal hematoma, lesions, or active bleeding. On arrival to ED, pt has high BP but is asymptomatic. Pt has history of HTN. Pt states he has all his chronic medications at home but didn't take them because he was feeling "ok". Prior records show that pt is taking Norvasc and Hydrolazine. Norvasc PO was given. Pt was advised to continue taking his medications daily and to follow up with PMD in 1-2 days for further evaluation. Disposition Counseled Patient/Family Regarding: Diagnosis, Need For Followup, Rx Given - Disposition Disposition: HOME/ ROUTINE Disposition Time: 15:07 Condition: STABLE Additional Instructions: Apply afrin nasal drops Apply small amount of vaseline to nostrils for moisture Follw up with PMD Return to ER if worse Prescriptions: Oxymetazoline 0.05% [Oxymetazoline HCl 30 Ml] 1 ml NS BID #1 bottle Forms: [facility] (Faroese), General Discharge Instructions - Clinical Impression Clinical Impression: H/O epistaxis, Encounter for removal of nasal packing - PA / DAYCARE MANAGER / Resident Statement MD/DO has reviewed & agrees with the documentation as recorded. - Scribe Statement The provider has reviewed the documentation as recorded by the Katyibe Jonathan Kapoor All medical record entries made by the Katyibgwen were at my direction and personally dictated by me. I have reviewed the chart and agree that the record accurately reflects my personal performance of the history, physical exam, medical decision making, and the department course for this patient. I have also personally directed, reviewed, and agree with the discharge instructions and disposition.
[2017-09-12 15:10] VITALS: BP 197/93; PULSE 97
[2017-09-12 15:11] VITALS: O2SAT 96
== END 2017-09-12 15:22 | disposition home or self-care (01) ==
LOC: C.ER 13:39
DX: Z51.89 Encounter for other specified aftercare (principal); R04.0 Epistaxis